=== PATIENT | male | born 1940 | race Caucasian/White ===

== ENCOUNTER 2021-03-26 10:45 | Day surgery (SDC) | payer MEDICARE ==
[~2021-03-26] VITALS: Ht 180.3 cm; Wt 71.6 kg
[2021-03-26] MEDS ORDERED: CHLORHEXIDINE 15 ML UDC ONE (11:26)
[2021-03-26] MEDS ORDERED: CHLORHEXIDINE 15 ML UDC PO ONE (11:30)
[2021-03-26] MEDS ORDERED: LACTATED RINGERS 1,000 ML IV SCH (11:30)
[2021-03-26 11:39] VITALS: BP 129/72
[2021-03-26] MEDS ORDERED: PROPOFOL 50 ML ONE (11:42)
[2021-03-26] MEDS ORDERED: ESZO3TAB28 PO (11:52)
[2021-03-26] MEDS ORDERED: OMEP-110 PO (11:52)
[2021-03-26] MEDS ORDERED: LOSA1TAB22 PO (11:52)
[2021-03-26] MEDS ORDERED: METF500T17 PO (11:52)
[2021-03-26] MEDS ORDERED: PANT40TA3 PO (11:52)
[2021-03-26] MEDS ORDERED: GABA-827 PO (11:52)
[2021-03-26] MEDS ORDERED: AMLO-211 PO (11:52)
[2021-03-26] MEDS ORDERED: ONDANSETRON 2MG/ML, 2ML IVPush PRN (12:30)
[2021-03-26] MEDS ORDERED: FENTANYL PF 100 MCG/2ML IV PRN (12:30)
== END 2021-03-26 13:40 | disposition home or self-care (01) ==
LOC: OUT 10:45
PROVIDERS: ATTEND Internal Medicine Geriatric Medicine
DX: K62.1 Rectal polyp (principal); K62.6 Ulcer of anus and rectum; K59.00 Constipation, unspecified; I10 Essential (primary) hypertension; E03.9 Hypothyroidism, unspecified; K21.9 Gastro-esophageal reflux disease without esophagitis; G25.81 Restless legs syndrome; Z20.822 Contact with and (suspected) exposure to COVID-19; Z79.84 Long term (current) use of oral hypoglycemic drugs; Z79.899 Other long term (current) drug therapy; Z86.010 Personal history of colon polyps; Z90.79 Acquired absence of other genital organ(s); Z98.890 Other specified postprocedural states; Z83.3 Family history of diabetes mellitus; Z82.49 Family history of ischemic heart disease and other diseases of the circulatory system; Z80.9 Family history of malignant neoplasm, unspecified
CPT/HCPCS: 45380; 45391; 82962; 87635; 88305; 88333; J2704; 88173